=== PATIENT | male | born 1995 | race Caucasian/White ===

== ENCOUNTER 2019-02-11 12:47 | Emergency (ER) | payer OTHER ==
[~2019-02-11] VITALS: Ht 177.8 cm; Wt 101.2 kg
[2019-02-11 13:01] VITALS: BP 119/79
[2019-02-11] MEDS ORDERED: NAPROXEN 500 MG TABLET PO STA (13:04)
[2019-02-11] MEDS ORDERED: MORPHINE SULFATE 10 MG/ML VIAL. IM ONE (13:15)
[2019-02-11] MEDS ORDERED: predniSONE 20 MG TABLET PO ONE (13:15)
[2019-02-11] MEDS ORDERED: diazePAM 5 MG TABLET PO ONE (13:15)
--- NOTE | 2019-02-11 13:40 | PHYS DOC ---
Past Medical History Past Medical History: No Pertinent History Past Surgical History: Other Additional Past Surgical Histo: RIGHT FOOT Alcohol Use: Rarely Drug Use: None Adult General Chief Complaint Chief Complaint: BACK INJURY HPI HPI Patient is a 23 year old male with a recent history of right foot fusion who presents to the ED today complaining of a throbbing intermittent 9 out of 10 bilateral low back pain radiating to bilateral hips that began yesterday, patient states he was doing bench presses and he went to put down a dumbbell heard a pop sound from his back and developed back pain. Patient states the pain is worse on certain movements especially extension of the lumbar spine. Denies any gross weakness. He states he was already seen by the chiropractor yesterday and tried to adjust his back with minimal relief. Denies any loss of bowel bladder function. Denies any numbness or tingling to bilateral lower extremities. He states he was seen by the PCPs office and sent to the ED for an MRI. Review of Systems Review of Systems Constitutional: Denies fever or chills [] Eyes: Denies change in visual acuity, redness, or eye pain [] HENT: Denies nasal congestion or sore throat [] Respiratory: Denies cough or shortness of breath [] Cardiovascular: No additional information not addressed in HPI [] GI: Denies abdominal pain, nausea, vomiting, bloody stools or diarrhea [] : Denies dysuria or hematuria [] Musculoskeletal: Reports low back pain Integument: Denies rash or skin lesions [] Neurologic: Denies headache, focal weakness or sensory changes [] All other systems were reviewed and found to be within normal limits, except as documented in this note. Current Medications Current Medications Current Medications Medications (Trade) Dose Ordered Sig/Sydnie Start Time Stop Time Status Last Admin Dose Admin Diazepam (Valium) 5 mg 1X ONCE 02/11/19 13:15 02/11/19 13:16 DC 02/11/19 13:25 5 MG Morphine Sulfate (Morphine Sulfate) 5 mg 1X ONCE 02/11/19 13:15 02/11/19 13:16 DC 02/11/19 13:25 5 MG Naproxen (Naprosyn) 500 mg 1X STAT 02/11/19 13:04 02/11/19 13:13 DC 02/11/19 13:25 500 MG Prednisone (Prednisone) 60 mg 1X ONCE 02/11/19 13:15 02/11/19 13:16 DC 02/11/19 13:25 60 MG Allergies Allergies Allergies Coded Allergies Type Severity Reaction Last Updated Verified No Known Drug Allergies 02/11/19 No Physical Exam Physical Exam Constitutional: Well developed, well nourished, no acute distress, non-toxic appearance. [] HENT: Normocephalic, atraumatic, bilateral external ears normal, oropharynx moist, no oral exudates, nose normal. [] Eyes: PERRLA, EOMI, conjunctiva normal, no discharge. [] Neck: Normal range of motion, no tenderness, supple, no stridor. [] Cardiovascular:Heart rate regular rhythm, no murmur [] Lungs & Thorax: Bilateral breath sounds clear to auscultation [] Abdomen: Bowel sounds normal, soft, no tenderness, no masses, no pulsatile masses. [] Rectal exam-normal rectal tone Skin: Warm, dry, no erythema, no rash. [] Back: Diffuse paraspinal muscle tenderness bilateral lumbar spine as well as mild midline lumbar spine tenderness, no CVA tenderness. Positive straight leg raises bilaterally. Extremities: No tenderness, no cyanosis, no clubbing, ROM intact, no edema. [] Neurologic: Alert and oriented X 3, normal motor function, normal sensory function, no focal deficits noted. [] Psychologic: Affect normal, judgement normal, mood normal. [] Current Patient Data Vital Signs Vital Signs Date Time Temp Pulse Resp B/P (MAP) Pulse Ox O2 Delivery O2 Flow Rate FiO2 02/11/19 13:25 16 99 Room Air 02/11/19 13:01 98.6 80 119/79 (92) 98.6 EKG EKG [] Radiology/Procedures Radiology/Procedures []PROCEDURE: CT LUMBAR SPINE WO CONTRAST Examination: CT LUMBAR SPINE WO CONTRAST History: Back pain after bench presses. Comparison/Correlation: None Findings: Axial images of the lumbar spine were obtained without contrast. Sagittal and coronal reformatted images were provided. Alignment is normal. Vertebral body heights and disc spaces are adequate. No fracture or malalignment. No evidence of disc herniation or significant disc bulge. Neural foramina are patent without findings of nerve effacement. No degenerative changes. Partially visualized retroperitoneum is unremarkable. Sacroiliac joints are normal. There are 5 lumbar-type vertebra. Impression: Normal lumbar spine CT exam. RS Compliance Statement: One or more of the following individualized dose reduction techniques were utilized for this examination: 1. Automated exposure control 2. Adjustment of the mA and/or kV according to patient size 3. Use of iterative reconstruction technique Electronically signed by: Bryan Lindo MD (02/11/2019 2:34 PM) [facility] DICTATED and SIGNED BY: BRYAN LINDO MD DATE: 02/11/19 1439 Course & Med Decision Making Course & Med Decision Making Pertinent Labs and Imaging studies reviewed. (See chart for details) This is a 23-year-old male patient who presents to the ED today complaining of back pain that began yesterday while working out, patient states he was doing expresses and placed a dumbbell down when he felt a pop sound from his back. Patient was evaluated at urgent care and sent to the ED today for MRI of the lumbar spine. He has no cauda equina syndrome symptoms. Rectal tone was done which is negative. CT of the lumbar spine is negative. Patient was discharged to home. Follow-up with PCP and neurosurgeon provided in a week. Ice or heat recommended to the lumbar spine. Dragon Disclaimer Dragon Disclaimer This electronic medical record was generated, in whole or in part, using a voice recognition dictation system. Departure Departure Impression: Primary Impression: Acute lumbosacral myofascial strain Disposition: 01 HOME, SELF-CARE Condition: STABLE Referrals: NO PCP (PCP) follow up in one week YURIY MENDEZ MD Patient Instructions: Lumbosacral Strain Additional Instructions: You were evaluated in the emergency room for lumbosacral strain. You can apply heat or ice to the affected area. Avoid lifting any heavy items for 1 week. Take the prescribed medications as ordered. Follow-up with your own doctor or the provided neurosurgeon in 1-2 weeks. Come back to the ED at any point symptoms worsen or you have new concerning symptoms especially loss of bowel/ bladder function. Scripts Diclofenac Potassium (DICLOFENAC POTASSIUM) 50 Mg Tablet 1 TAB PO BID, #20 TAB 0 Refills Prov: TIERNEYAANDREZ LEAD FABRICATOR 02/11/19 Cyclobenzaprine Hcl (CYCLOBENZAPRINE HCL) 10 Mg Tablet 1 TAB PO TID, #30 TAB Prov: CARLOSUNGAANDREZ LEAD FABRICATOR 02/11/19 Methylprednisolone (MEDROL) 4 Mg Tab.ds.pk 1 PKG PO UD, #1 PKG Prov: ANDREZ PALENCIA LEAD FABRICATOR 02/11/19 Hydrocodone/Apap 5-325 (NORCO 5-325 TABLET) 1 Each Tablet 1-2 TAB PO Q6HRS PRN for PAIN, #20 TAB Prov: ANDREZ PALENCIA PEYTON 02/11/19 Problem Qualifiers Primary Impression: Acute lumbosacral myofascial strain Encounter type: initial encounter Qualified Codes: S39.012A - Strain of muscle, fascia and tendon of lower back, initial encounter CARLOSANGUSEduardANDREZ PEYTON Feb 11, 2019 13:40
--- NOTE | 2019-02-11 14:37 | RAD ---
Examination: CT LUMBAR SPINE WO CONTRAST History: Back pain after bench presses. Comparison/Correlation: None Findings: Axial images of the lumbar spine were obtained without contrast. Sagittal and coronal reformatted images were provided. Alignment is normal. Vertebral body heights and disc spaces are adequate. No fracture or malalignment. No evidence of disc herniation or significant disc bulge. Neural foramina are patent without findings of nerve effacement. No degenerative changes. Partially visualized retroperitoneum is unremarkable. Sacroiliac joints are normal. There are 5 lumbar-type vertebra. Impression: Normal lumbar spine CT exam. PQRS Compliance Statement: One or more of the following individualized dose reduction techniques were utilized for this examination: 1. Automated exposure control 2. Adjustment of the mA and/or kV according to patient size 3. Use of iterative reconstruction technique Electronically signed by: Bryan Dallas MD (02/11/2019 2:34 PM) [facility]
[2019-02-11] MEDS ORDERED: HYDR-3164 PO (15:07)
[2019-02-11] MEDS ORDERED: DICL50TA2 PO (15:07)
[2019-02-11] MEDS ORDERED: CYCL10TA2 PO (15:07)
[2019-02-11] MEDS ORDERED: METH4TAB2 PO (15:07)
== END 2019-02-11 15:29 | disposition home or self-care (01) ==
LOC: ER 12:47
DX: S39.012A Strain of muscle, fascia and tendon of lower back, initial encounter (principal); X50.9XXA Other and unspecified overexertion or strenuous movements or postures, initial encounter; Y93.89 Activity, other specified; Y92.89 Other specified places as the place of occurrence of the external cause; Y99.8 Other external cause status
CPT/HCPCS: 72131; 96372; 99284; J2270; J7512